=== PATIENT | female | born 1945 | race Caucasian/White ===

== ENCOUNTER 2019-11-10 12:38 | Emergency (ER) | payer MEDICARE, OTHER, SELFPAY ==
[2019-11-10 13:13] VITALS: BP 118/67; PULSE 88; RESP 20; TEMP 36.4; O2SAT 94; BMI 21.4
--- NOTE | 2019-11-10 15:27 | ECG_ITS ---
Measurements Intervals [place] Rate: 81 P: 56 CA: 122 QRS: 34 QRSD: 100 T: 65 QT: 427 QTc: 497 SINUS RHYTHM POSSIBLE LEFT ATRIAL ENLARGEMENT LEFT VENTRICULAR HYPERTROPHY AND ST-T CHANGE POSSIBLE SEPTAL MYOCARDIAL INFARCTION , OF INDETERMINATE AGE Compared to ECG 09/10/2019 04:17:51 Left ventricular hypertrophy now present ST (T wave) deviation now present Myocardial infarct finding now present T-wave abnormality no longer present Electronically Signed On 11-10-2019 17:08:23 BREAKDOWN MAN by Kristal Del Castillo M.D. [email or web address]
--- NOTE | 2019-11-10 15:27 | XR_ITS ---
WS: [id number] Portable AP upright chest, 11/10/2019 Clinical Data: chest pain Comparison: E a and lateral chest, 07/07/2019. Findings: No nodules, masses or effusions are seen. The heart is normal. The pulmonary vascularity is not increased. No pneumonia or pneumothorax is seen. Minimal atelectatic change in the left lower lo be is seen. The aortic arch and descending aorta show calcification and tortuosity. There is a stent extending into the brachiocephalic artery from the aortic arch. XR/XR chest 1V portable [id number] Impression: Atherosclerosis.
== END 2019-11-10 17:08 | disposition home or self-care (01) ==
PROVIDERS: Emergency Provider Emergency Medicine; Family Provider Internal Medicine; PCP Family Medicine
DX: Z53.21 Procedure and treatment not carried out due to patient leaving prior to being seen by health care provider (principal)
CPT/HCPCS: 71045; 93005; 99281

== ENCOUNTER 2019-11-12 16:40 | Emergency (ER) | payer MEDICARE, OTHER, SELFPAY ==
[2019-11-12 16:42] VITALS: BP 167/87; PULSE 85; RESP 18; TEMP 36.7; O2SAT 95; BMI 26.5
--- NOTE | 2019-11-12 16:42 | ED_ITS ---
Entered by Fely Flower, acting as scribe for Fidel Christianson DO HPI - Fall General: Chief Complaint: Fall Stated Complaint: FALL Time Seen by Provider: 11/12/19 16:41 Source: patient Mode of arrival: EMS Limitations: no limitations History of Present Illness: HPI Narrative: 74 yo Female presents to ED with complaint of fall. Pt states she hurts all over. Pt states that she fell coming out of her bathroom. Pt states that she had to drag herself to the livingroom to get herself up. Pt states that she hit both sides of her head and her right shoulder. Pt states that she fell flat on her back and her back hurts. Pt states that she wants to be sure that she doesn't have pneumonia because she gets it really easy. MD complaint: fall Onset (ago): day(s) (today) Fall from: standing Fall witnessed: no Place fall occurred: home Loss of consciousness: None Location of injury: head and back Location of injury - extremities: Right: shoulder Severity scale (1-10): 7 Associated symptoms-after fall: Reports difficulty walking Review of Systems General: Reports: 10 or more systems reviewed and unremarkable except in HPI and below Musc: Reports: back pain, extremity pain (right shoulder) and muscle weakness Neuro: Reports: difficulty walking PFSH ED PFSH: Statuses (acute, chronic, etc) shown below reflect problem list status as previously entered and may not be historically accurate Medical History (Updated 11/12/19 @ 19:20 by Fidel Christianson DO) Atrial fibrillation (Acute) CAD (coronary artery disease) (Acute) CHF (congestive heart failure) (Acute) COPD (chronic obstructive pulmonary disease) (Acute) CVA (cerebral vascular accident) (Acute) Diabetes (Acute) GERD (gastroesophageal reflux disease) (Acute) HTN (hypertension) (Acute) Hyperlipidemia (Acute) Lung cancer (Acute) Myocardial infarction (Acute) Pancreatitis (Acute) Peptic ulcer disease (Acute) Peripheral vascular disease (Acute) Pulmonary embolism (Acute) Ulcerative colitis (Acute) Valvular heart disease (Acute) Surgical History (Updated 11/12/19 @ 17:18 by Fely Flower) History of bladder suspension procedure (Acute) History of laparotomy (Acute) Hx of adenoidectomy (Acute) Hx of appendectomy (Acute) Hx of carotid angioplasty (Acute) Hx of cataract surgery (Acute) Hx of cholecystectomy (Acute) Hx of colonoscopy (Acute) Hx of endoscopy (Acute) Hx of hemorrhoidectomy (Acute) Hx of hysterectomy (Acute) Hx of tonsillectomy (Acute) Social History Smoking and tobacco status: former smoker Physical Exam Const: COMMON NORMALS: no apparent distress, average body habitus, oriented x3, no limitations, healthy appearing, alert and well nourished HENMT: COMMON NORMALS: normocephalic, head/scalp atraumatic, hearing grossly normal bilaterally, external ears normal, EAC's normal, TM's normal bilaterally, external nose normal, nasal mucous membranes and turbinates normal, moist oral mucous membranes, oropharynx normal, dentition normal and gingiva normal HEAD & SCALP: normocephalic and atraumatic NOSE: external nose normal and nasal mucous membranes and turbinates normal EXTERNAL EAR: Yes external ears normal EXTERNAL AUDITORY CANAL: EAC's normal TYMPANIC MEMBRANE: TM's normal bilaterally Eye: COMMON NORMALS: PERRL, EOMs intact bilaterally, conjunctivae normal, no scleral icterus, no papilledema, normal visual shepherd by confrontation and fundi normal bilaterally CONJUNCTIVA: Yes conjunctivae normal PUPIL: Yes PERRL DIRECT OPHTHALMOSCOPY: Yes no papilledema and Yes fundi normal bilaterally Neck/C-Spine: COMMON NORMALS: full ROM, no lymphadenopathy, supple, no meningeal signs, no JVD, thyroid normal and no carotid bruits THYROID: thyroid normal Chest: COMMONS NORMALS: inspection of chest normal and palpation of chest normal Resp: COMMON NORMALS: normal respiratory effort, no retractions, no use of accessory muscles, clear to auscultation bilaterally and percussion normal AUSCULTATION: clear to auscultation bilaterally PERCUSSION: percussion normal Cardio: COMMON NORMALS: no JVD, regular rate, regular rhythm, S1 normal heart sound, S2 normal heart sound, no gallops, no clicks, no murmurs, no rub and peripheral pulses 2+ throughout RATE: regular rate RHYTHM: regular rhythm HEART SOUNDS: S1 normal and S2 normal PERIPHERAL PULSES: pulses 2+ throughout GI: COMMON NORMALS: normal to inspection, nondistended, normoactive bowel sounds, soft to palpation, non-tender, no hepatosplenomegaly, no masses and no bruits PALPATION: Yes soft and Yes no hepatosplenomegaly : COMMON NORMALS: Yes no CVA tenderness and Yes external appearance normal BLADDER/KIDNEY EXAM: Yes no CVA tenderness Back/Pelvis: COMMON NORMALS: no CVA tenderness, thoracic and lumbar spine normal to inspection, no thoracic nor lumbar tenderness, thoraco-lumbar ROM normal and straight leg raise negative bilaterally Extremity: COMMON NORMALS: normal to inspection, full ROM, normal capillary refill, no joint enlargement, no clubbing, cyanosis or edema, no calf tenderness and no pedal edema Neuro: COMMON NORMALS: oriented x3 SENSORIUM/ORIENTATION: Yes alert MENINGEAL SIGNS: Yes no meningeal signs Skin: COMMON NORMALS: no rashes or lesions noted, no wounds, skin turgor normal, no jaundice, no petechiae and no mottling GENERAL SKIN EXAM: no rashes or lesions noted and turgor normal Course Vital Signs: Vital signs: Vital Signs Temperature 98.1 F 11/12/19 16:42 Pulse Rate 85 11/12/19 16:42 Respiratory Rate 18 11/12/19 18:07 Blood Pressure 167/87 11/12/19 16:42 Pulse Oximetry 95 11/12/19 18:07 MDM - Fall Lab Data: Labs: Lab Results 11/12/19 11/12/19 11/12/19 Range/Units 15:44 17:15 17:15 WBC 12.4 H (4.0-10.0) 10^3/ uL RBC 4.44 (4.1-5.3) 10^6/u L Hgb 13.4 (11.5-15.3) g/dL Hct 43.7 (37.0-47.0) % MCV 98.4 (81-99) fL MCH 30.2 (28.0-34.0) pg MCHC 30.7 (30.0-36.0) g/dL RDW 15.7 H (12.1-15.1) % Plt Count 232 (130-400) 10^3/c mm MPV 9.3 (7.4-10.4) fL Neut % (Auto) 87.4 % Lymph % (Auto) 8.2 % Garden % (Auto) 3.9 % Eos % (Auto) 0.0 % Baso % (Auto) 0.2 % Neut # (Auto) 10.8 H (1.8-7.7) 10^3/u L Lymph # (Auto) 1.0 (0.8-4.8) 10^3/u L Garden # (Auto) 0.5 (0.2-0.9) 10^3/u L Eos # (Auto) 0.0 (0.0-0.8) 10^3/u L Baso # (Auto) 0.0 (0.0-0.1) 10^3/u L Nucleated RBC % (a uto) 0 % Nucleated RBCs # 0.0 /100WBC Sodium 140 (136-145) mmol/L Potassium 3.5 (3.5-5.1) mmol/L Chloride 103 (98-107) mmol/L Carbon Dioxide 25 (22-29) mmol/L Anion Gap 15.5 (5-19) BUN 13 (8-23) mg/dL Creatinine 0.8 (0.5-0.9) mg/dL Glucose 84 (74-106) mg/dL Lactate (0.5-2.2) mmol/L Calcium 9.4 (8.8-10.2) mg/Dl Total Bilirubin 0.3 (0.15-1.2) mg/dL AST 10 (0-32) U/L ALT < 5 (0-33) U/L Alkaline Phosphata se 141 H (35-105) IU/L Total Protein 7.2 (6.6-8.7) g/dL Albumin 3.4 L (3.5-5.2) g/dL Globulin 3.8 (1.3-4.6) g/dL Urine Color Straw (Yellow) Urine Appearance Sl hazy (CLEAR) Urine pH 5 (5-7) Ur Specific Gravit y 1.010 (1.005-1.030) Urine Protein Neg (Negative) Urine Glucose (UA) Norm (Normal) Urine Ketones Negative (Negative) Urine Occult Blood Neg (Negative) Urine Nitrate Negative (Negative) Urine Bilirubin Neg (NEGATIVE) Urine Urobilinogen Norm (Negative) mg/dL Ur Leukocyte Mica ase Trace H (Negative) Urine RBC 0-4 H (0-2) /hpf Urine WBC 15-25 H (0-5) /hpf Ur Squamous Epith Cells 10-15 H (0-5) Ur Transition Epit h Cell 0-4 /hpf Urine Bacteria 2+ H (NONE) Hyaline Casts 5-10 H Urine Mucus Trace Influenza Type A A g (Negative) POC Influenza B Ag (Negative) 11/12/19 11/12/19 Range/Units 17:15 18:15 WBC (4.0-10.0) 10^3/ uL RBC (4.1-5.3) 10^6/u L Hgb (11.5-15.3) g/dL Hct (37.0-47.0) % MCV (81-99) fL MCH (28.0-34.0) pg MCHC (30.0-36.0) g/dL RDW (12.1-15.1) % Plt Count (130-400) 10^3/c mm MPV (7.4-10.4) fL Neut % (Auto) % Lymph % (Auto) % Garden % (Auto) % Eos % (Auto) % Baso % (Auto) % Neut # (Auto) (1.8-7.7) 10^3/u L Lymph # (Auto) (0.8-4.8) 10^3/u L Garden # (Auto) (0.2-0.9) 10^3/u L Eos # (Auto) (0.0-0.8) 10^3/u L Baso # (Auto) (0.0-0.1) 10^3/u L Nucleated RBC % (a uto) % Nucleated RBCs # /100WBC Sodium (136-145) mmol/L Potassium (3.5-5.1) mmol/L Chloride (98-107) mmol/L Carbon Dioxide (22-29) mmol/L Anion Gap (5-19) BUN (8-23) mg/dL Creatinine (0.5-0.9) mg/dL Glucose (74-106) mg/dL Lactate 0.7 (0.5-2.2) mmol/L Calcium (8.8-10.2) mg/Dl Total Bilirubin (0.15-1.2) mg/dL AST (0-32) U/L ALT (0-33) U/L Alkaline Phosphata se (35-105) IU/L Total Protein (6.6-8.7) g/dL Albumin (3.5-5.2) g/dL Globulin (1.3-4.6) g/dL Urine Color (Yellow) Urine Appearance (CLEAR) Urine pH (5-7) Ur Specific Gravit y (1.005-1.030) Urine Protein (Negative) Urine Glucose (UA) (Normal) Urine Ketones (Negative) Urine Occult Blood (Negative) Urine Nitrate (Negative) Urine Bilirubin (NEGATIVE) Urine Urobilinogen (Negative) mg/dL Ur Leukocyte Mica ase (Negative) Urine RBC (0-2) /hpf Urine WBC (0-5) /hpf Ur Squamous Epith Cells (0-5) Ur Transition Epit h Cell /hpf Urine Bacteria (NONE) Hyaline Casts Urine Mucus Influenza Type A A g Negative (Negative) POC Influenza B Ag Negative (Negative) Imaging Data^: CT Head: Radiologist's impression: [place] [address] CT Scan Report Signed Patient: Nola Quick [facility]#: [id number] : 1945cct:[id number] Age/Sex: 74 / FADM Date: 11/12/19 Loc: ER Attending Dr: Ordering Physician: Fidel Christianson DO Date of Service: 11/12/19 Procedure(s): CT head wo con* [id number] Accession Number(s): [id number] cc: Fidel Christianson DO~ PROCEDURE INFORMATION: Exam: CT Head Without Contrast Exam date and time: 11/12/2019 4:58 PM Age: 74 years old Clinical indication: Injury or trauma; Fall; Initial encounter; Blunt trauma (contusions or hematomas); Consciousness not specified TECHNIQUE: Imaging protocol: Computed tomography of the head without contrast. Total DLP: 803.76 mGy-cm Radiation optimization: All CT scans at this facility use at least one of these dose optimization techniques: automated exposure control; mA and/or kV adjustment per patient size (includes targeted exams where dose is matched to clinical indication); or iterative reconstruction. COMPARISON: [place] IV contrast* [id number] 09/10/2019 3:23 AM FINDINGS: Brain: There is encephalomalacia in the right parieto-occipital lobe.Mild volume loss and white matter disease are identified. There is no acute infarct or edema. No hemorrhage. Ventricles: Normal. No ventriculomegaly. Bones/joints: Unremarkable. No acute fracture. Sinuses: Visualized sinuses are unremarkable. No fluid levels. Mastoid air cells: Visualized mastoid air cells are well aerated. Soft tissues: Unremarkable. Vasculature: There is a surgical clip near the cavernous sinus which results in streak artifact. This is unchanged. CT/CT head wo con* [id number] IMPRESSION: No acute fracture or intracranial hemorrhage. Radiation Dose CTDIVOL = (mGy): DLP = 803.76 (mGy-cm) Dictated By: Loi Velasco MD 11/12/19 174 Signed By: Loi Velasco MD 11/12/19 174 CXR: Radiologist's impression: [address] [address] XRay Report Signed Patient: Nola Quick SMR#: [id number] : 1945cct:[id number] Age/Sex: 74 / FADM Date: 11/12/19 Loc: ER Attending Dr: Ordering Physician: Fidel Christianson DO Date of Service: 11/12/19 Procedure(s): XR chest 1V 43401 Accession Number(s): [id number] cc: Fidel Christianson DO~ PROCEDURE INFORMATION: Exam: XR Chest, 1 View Exam date and time: 11/12/2019 4:58 PM Age: 74 years old Clinical indication: Injury or trauma; Fall; Initial encounter; Blunt trauma (contusions or hematomas); Prior surgery; Additional info: Pneumonia TECHNIQUE: Imaging protocol: XR of the chest Views: 1 view. COMPARISON: CR XR chest 1V portable [id number] 11/10/2019 3:23 PM FINDINGS: Lungs: Unremarkable. No consolidation. Pleural space: Unremarkable. No pleural effusion. No pneumothorax. Heart/Mediastinum: Cardiomegaly is identified. Bones/joints: Unremarkable. Soft tissues: There is a stent in what is likely a right brachiocephalic vessel. XR/XR chest 1V [id number] IMPRESSION: There are no acute concerning abnormalities. Dictated By: Loi Velasco MD 11/12/19 181 Signed By: Loi Velasco MD 11/12/19 1813 Lumbar Spine Xray: Radiologist's impression: [address] [place] [address] XRay Report Signed Patient: Nola Quick [facility]#: [id number] : 3Acct:[id number] Age/Sex: 74 / FADM Date: 11/12/19 Loc: ER Attending Dr: Ordering Physician: Fidel Christianson DO Date of Service: 11/12/19 Procedure(s): XR lumbar spine 2-3V* 01294 Accession Number(s): [id number] cc: Fidel Christianson DO~ PROCEDURE INFORMATION: Exam: XR Lumbosacral Spine, 2 or 3 Views Exam date and time: 11/12/2019 4:58 PM Age: 74 years old Clinical indication: Pain and injury or trauma; Fall; Initial encounter; Blunt trauma (contusions or hematomas); Low back pain; Injury date: TECHNIQUE: Imaging protocol: XR of the lumbosacral spine, 2 or 3 views. COMPARISON: CR Lumbar Spine 2-3 views* [id number] 10/09/2014 11:02 AM FINDINGS: Vertebrae: There is deformity of the L4 vertebral body which is likely old. No acute fracture. There is osteopenia. Vasculature: There is a stent in the abdominal aorta and right iliac artery. Soft tissues: Normal. XR/XR lumbar spine 2-3V* 01314 IMPRESSION: No acute fracture. There is deformity of the L4 vertebral body which appears old.If there is desire for further evaluation, a CT scan could be performed. Dictated By: Loi Velasco MD 11/12/19 1800 Signed By: Loi Velasco MD 11/12/19 1801 Pelvis Xray: Radiologist's impression: [address] [place] [address] XRay Report Signed Patient: Noal Quick [facility]#: [id number] : 3Acct:[id number] Age/Sex: 74 / FADM Date: 11/12/19 Loc: ER Attending Dr: Ordering Physician: Fidel Christianson DO Date of Service: 11/12/19 Procedure(s): XR pelvis 1-2V* 06697 Accession Number(s): [id number] cc: Fidel Christianson DO~ PROCEDURE INFORMATION: Exam: XR Pelvis Exam date and time: 11/12/2019 4:58 PM Age: 74 years old Clinical indication: Pain and injury or trauma; Fall; Initial encounter; Blunt trauma (contusions or hematomas); Bilateral; Pelvic region; Pelvic pain; Injury date: TECHNIQUE: Imaging protocol: XR pelvis. Views: 1 or 2 view. COMPARISON: CR Hips Bilat 3-4v wwo Pelv 46783 08/18/2016 11:55 AM FINDINGS: Bones/joints: There is osteopenia.There is no evidence for acute fracture or malalignment. Soft tissues: Unremarkable. XR/XR pelvis 1-2V* 16550 IMPRESSION: There is no evidence for acute fracture or malalignment. If there is desire for further evaluation, a CT scan could be performed. Dictated By: Loi Velasco MD 11/12/191757 Signed By: Loi Velasco MD 11/12/191758 Shoulder Xray: Radiologist's impression: [place] [address] XRay Report Signed Patient: Nola Quick [facility]#: [id number] : 3Acct:[id number] Age/Sex: 74 / FADM Date: 11/12/19 Loc: ER Attending Dr: Ordering Physician: Fidel Christianson DO Date of Service: 11/12/19 Procedure(s): XR shoulder RT min 2V* 48624 Accession Number(s): [id number] cc: Fidel Christianson DO~ PROCEDURE INFORMATION: Exam: XR Right Shoulder Exam date and time: 11/12/2019 4:58 PM Age: 74 years old Clinical indication: Pain and injury or trauma; Fall; Initial encounter; Blunt trauma (contusions or hematomas; Shoulder; Right; Injury date: TECHNIQUE: Imaging protocol: XR Right shoulder. Views: 2 or more views. COMPARISON: No relevant prior studies available. FINDINGS: Bones/joints: There is osteopenia.There is no evidence for acute fracture or malalignment. Soft tissues: Normal. XR/XR shoulder RT min 2V* [id number] IMPRESSION: There is no evidence for acute fracture or malalignment. If there is desire for further evaluation, a CT scan could be performed. Dictated By: Loi Velasco MD 11/12/191806 Signed By: Loi Velasco MD 11/12/191807 Discharge Plan Discharge Patient Disposition: Home, Self-Care Clinical Impression: Fall Qualifiers: Encounter type: initial encounter Qualified Code(s): W19.XXXA - Unspecified fall, initial encounter Contusion Qualifiers: Encounter type: initial encounter Contusion area: lower back Qualified Code(s): S30.0XXA - Contusion of lower back and pelvis, initial encounter UTI (urinary tract infection) Qualifiers: Urinary tract infection type: acute cystitis Hematuria presence: with hematuria Qualified Code(s): N30.01 - Acute cystitis with hematuria Condition: Stable Prescriptions: New nitrofurantoin macrocrystal 100 mg capsule 100 mg PO BID 7 Days Qty: 14 RF: 0 Discharge Orders: Discharge Order (Routine); Ordered 11/12/19 Ordered By: Fidel Christianson Referrals: Nata Bangura MD [Primary Care Provider] - Dyllan Mann DO [Family Provider] - Discharge Diet: Usual diet Discharge Activity: Resume usual activity Coding Level of Care Code ED 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
--- NOTE | 2019-11-12 16:47 | XRR_ITS ---
PROCEDURE INFORMATION: Exam: XR Right Shoulder Exam date and time: 11/12/2019 4:58 PM Age: 74 years old Clinical indication: Pain and injury or trauma; Fall; Initial encounter; Blunt trauma (contusions or hematomas; Shoulder; Right; Injury date: TECHNIQUE: Imaging protocol: XR Right shoulder. Views: 2 or more views. COMPARISON: No relevant prior studies available. FINDINGS: Bones/joints: There is osteopenia.There is no evidence for acute fracture or malalignment. Soft tissues: Normal. XR/XR shoulder RT min 2V* [id number] IMPRESSION: There is no evidence for acute fracture or malalignment. If there is desire for further evaluation, a CT scan could be performed.
--- NOTE | 2019-11-12 16:47 | CTR_ITS ---
PROCEDURE INFORMATION: Exam: CT Head Without Contrast Exam date and time: 11/12/2019 4:58 PM Age: 74 years old Clinical indication: Injury or trauma; Fall; Initial encounter; Blunt trauma (contusions or hematomas); Consciousness not specified TECHNIQUE: Imaging protocol: Computed tomography of the head without contrast. Total DLP: 803.76 mGy-cm Radiation optimization: All CT scans at this facility use at least one of these dose optimization techniques: automated exposure control; mA and/or kV adjustment per patient size (includes targeted exams where dose is matched to clinical indication); or iterative reconstruction. COMPARISON: CT Head wo IV contrast* [id number] 09/10/2019 3:23 AM FINDINGS: Brain: There is encephalomalacia in the right parieto-occipital lobe.Mild volume loss and white matter disease are identified. There is no acute infarct or edema. No hemorrhage. Ventricles: Normal. No ventriculomegaly. Bones/joints: Unremarkable. No acute fracture. Sinuses: Visualized sinuses are unremarkable. No fluid levels. Mastoid air cells: Visualized mastoid air cells are well aerated. Soft tissues: Unremarkable. Vasculature: There is a surgical clip near the cavernous sinus which results in streak artifact. This is unchanged. CT/CT head wo con* [id number] IMPRESSION: No acute fracture or intracranial hemorrhage. Radiation Dose CTDIVOL = (mGy): DLP = 803.76 (mGy-cm)
--- NOTE | 2019-11-12 16:47 | XRR_ITS ---
PROCEDURE INFORMATION: Exam: XR Pelvis Exam date and time: 11/12/2019 4:58 PM Age: 74 years old Clinical indication: Pain and injury or trauma; Fall; Initial encounter; Blunt trauma (contusions or hematomas); Bilateral; Pelvic region; Pelvic pain; Injury date: TECHNIQUE: Imaging protocol: XR pelvis. Views: 1 or 2 view. COMPARISON: CR Hips Bilat 3-4v wwo Pelv [id number] 08/18/2016 11:55 AM FINDINGS: Bones/joints: There is osteopenia.There is no evidence for acute fracture or malalignment. Soft tissues: Unremarkable. XR/XR pelvis 1-2V* 31099 IMPRESSION: There is no evidence for acute fracture or malalignment. If there is desire for further evaluation, a CT scan could be performed.
--- NOTE | 2019-11-12 16:47 | XRR_ITS ---
PROCEDURE INFORMATION: Exam: XR Lumbosacral Spine, 2 or 3 Views Exam date and time: 11/12/2019 4:58 PM Age: 74 years old Clinical indication: Pain and injury or trauma; Fall; Initial encounter; Blunt trauma (contusions or hematomas); Low back pain; Injury date: TECHNIQUE: Imaging protocol: XR of the lumbosacral spine, 2 or 3 views. COMPARISON: CR Lumbar Spine 2-3 views* [id number] 10/09/2014 11:02 AM FINDINGS: Vertebrae: There is deformity of the L4 vertebral body which is likely old. No acute fracture. There is osteopenia. Vasculature: There is a stent in the abdominal aorta and right iliac artery. Soft tissues: Normal. XR/XR lumbar spine 2-3V* 17506 IMPRESSION: No acute fracture. There is deformity of the L4 vertebral body which appears old.If there is desire for further evaluation, a CT scan could be performed.
--- NOTE | 2019-11-12 16:47 | XRR_ITS ---
PROCEDURE INFORMATION: Exam: XR Chest, 1 View Exam date and time: 11/12/2019 4:58 PM Age: 74 years old Clinical indication: Injury or trauma; Fall; Initial encounter; Blunt trauma (contusions or hematomas); Prior surgery; Additional info: Pneumonia TECHNIQUE: Imaging protocol: XR of the chest Views: 1 view. COMPARISON: CR XR chest 1V portable [id number] 11/10/2019 3:23 PM FINDINGS: Lungs: Unremarkable. No consolidation. Pleural space: Unremarkable. No pleural effusion. No pneumothorax. Heart/Mediastinum: Cardiomegaly is identified. Bones/joints: Unremarkable. Soft tissues: There is a stent in what is likely a right brachiocephalic vessel. XR/XR chest 1V 55469 IMPRESSION: There are no acute concerning abnormalities.
--- NOTE | 2019-11-12 16:49 | ECG_ITS ---
Measurements Intervals [place] Rate: 84 P: 70 IN: 134 QRS: 46 QRSD: 92 T: 73 QT: 414 QTc: 492 SINUS RHYTHM LEFT VENTRICULAR HYPERTROPHY AND ST-T CHANGE [VOLTAGE CRITERIA PLUS ST/T ABNORMALITY] POSSIBLE SEPTAL MYOCARDIAL INFARCTION , OF INDETERMINATE AGE Compared to ECG 11/10/2019 15:56:49 No significant changes Electronically Signed On 11-13-2019 11:15:43 WHEEL FITTER by Kristal Del Castillo M.D. [email or web address]
[2019-11-12 17:33] LABS: Basophils % 0.2 %; Hematocrit 43.7 % (37.0-47.0); Hemoglobin 13.4 g/dL (11.5-15.3); Lymphocytes % 8.2 %; Mean Corpuscular HGB Conc 30.7 g/dL (30.0-36.0); Mean Corpuscular Hemoglobin 30.2 pg (28.0-34.0); Mean Corpuscular Volume 98.4 fL (81-99); Mean Platelet Volume 9.3 fL (7.4-10.4); Monocytes # 0.5 10^3/uL (0.2-0.9); Monocytes % 3.9 %; Neutrophils # 10.8 10^3/uL (1.8-7.7); Neutrophils % 87.4 %; Nucleated Red Blood Cells % 0 %; Platelet Count 232 10^3/cmm (130-400); Red Blood Count 4.44 10^6/uL (4.1-5.3); Red Cell Distribution Width 15.7 % (12.1-15.1); White Blood Count 12.4 10^3/uL (4.0-10.0)
[2019-11-12] MEDS: sodium chloride 0.9% 1,000 ML 999 ML IV (17:39)
[2019-11-12 17:46] LABS: Lactate (Lactic Acid level) 0.7 mmol/L (0.5-2.2)
[2019-11-12 17:50] LABS: Alanine Aminotransferase < 5 U/L (0-33); Albumin Level 3.4 g/dL (3.5-5.2); Alkaline Phosphatase 141 IU/L (35-105); Anion Gap 15.5 (5-19); Aspartate Amino Transferase 10 U/L (0-32); Blood Urea Nitrogen 13 mg/dL (8-23); Calcium 9.4 mg/Dl (8.8-10.2); Carbon Dioxide 25 mmol/L (22-29); Chloride 103 mmol/L (98-107); Globulin 3.8 g/dL (1.3-4.6); Glucose 84 mg/dL (74-106); Potassium 3.5 mmol/L (3.5-5.1); Sodium 140 mmol/L (136-145); Total Bilirubin 0.3 mg/dL (0.15-1.2); Total Protein 7.2 g/dL (6.6-8.7)
[2019-11-12 18:07] VITALS: RESP 18; O2SAT 95
[2019-11-12] MEDS: morphine 4 mg/mL SDV 1 mL 2 MG IVP (18:07)
[2019-11-12] MEDS: ondansetron 2 mg/ML SDV 2 mL 4 MG IVP (18:10)
[2019-11-12 19:07] LABS: Bilirubin Urine Neg (NEGATIVE); Blood Urine Neg (Negative); Glucose Urine UA Norm (Normal); Ketones Urine Negative (Negative); Leukocyte Esterase Urine Trace (Negative); Nitrate Urine Negative (Negative); Protein Urine Neg (Negative); Urine Appearance SL Hazy (CLEAR); Urine Color Straw (Yellow); Urobilinogen Urine Norm (Negative); pH Urine 5 (5-7)
[2019-11-12 19:09] LABS: Bacteria Urine 2+; Mucus Urine TRACE; RBC Urine 0-4 /hpf (0-2); Transitional Epi Cells Urine 0-4 /hpf; WBC Urine 15-25 /hpf (0-5)
[2019-11-12 19:11] LABS: Add Urine Culture? Yes
[2019-11-12 19:12] LABS: Influenza A by IFA Negative (Negative)
[2019-11-12 19:13] LABS: Influenza B by IFA Negative (Negative)
[2019-11-12 20:29] VITALS: BP 142/67; PULSE 77; RESP 18; O2SAT 98
== END 2019-11-12 20:30 | disposition home or self-care (01) ==
PROVIDERS: Emergency Provider Family Medicine; Family Provider Internal Medicine; PCP Family Medicine
DX: S30.0XXA Contusion of lower back and pelvis, initial encounter (principal); N30.01 Acute cystitis with hematuria; W19.XXXA Unspecified fall, initial encounter; Y92.002 Bathroom of unspecified non-institutional (private) residence as the place of occurrence of the external cause; I48.91 Unspecified atrial fibrillation; I25.10 Atherosclerotic heart disease of native coronary artery without angina pectoris; I11.0 Hypertensive heart disease with heart failure; I50.9 Heart failure, unspecified; J44.9 Chronic obstructive pulmonary disease, unspecified; Z86.73 Personal history of transient ischemic attack (TIA), and cerebral infarction without residual deficits; E11.9 Type 2 diabetes mellitus without complications; E78.5 Hyperlipidemia, unspecified; Z85.118 Personal history of other malignant neoplasm of bronchus and lung; I25.2 Old myocardial infarction; I73.9 Peripheral vascular disease, unspecified; Z86.711 Personal history of pulmonary embolism; Z87.891 Personal history of nicotine dependence
CPT/HCPCS: 36415; 70450; 71045; 72100; 72170; 73030; 80053; 81001; 83605; 85025; 87077; 87086; 87186; 87804; 93005; 96360; 96372; 96374; 99282; J0696; J2001; J2270; J2405; J7030

== ENCOUNTER 2020-03-10 23:04 | Emergency (ER) | payer MEDICARE, OTHER, SELFPAY ==
[2020-03-10 23:33] VITALS: BP 172/90; PULSE 68; RESP 20; TEMP 36.6; O2SAT 86; BMI 25.6
--- NOTE | 2020-03-10 23:37 | XRR_ITS ---
PROCEDURE INFORMATION: Exam: XR Right Hand Exam date and time: 03/10/2020 11:38 PM Age: 74 years old Clinical indication: Injury or trauma; Initial encounter; Blunt trauma (contusions or hematomas; Right; Patient HX: R hand/5th finger pain swelling and bruising after fall TECHNIQUE: Imaging protocol: XR Right hand. Views: 3 or more views. COMPARISON: No relevant prior studies available. FINDINGS: Bones/joints: There is acute intra-articular fracture of the base of the proximal phalanx of the 5th digit of the right hand. There is cortical irregularity of the base of the 4th metacarpal of the right hand possibly representing a nondisplaced fracture. Soft tissues: Soft tissue swelling overlies the 5th metacarpophalangeal joint. XR/XR hand RT min 3V* [id number] IMPRESSION: 1. Acute intra-articular fracture of the base of the proximal phalanx of the 5th digit of the right hand. 2. Mild cortical irregularity at the base of the 4th metacarpal of the right hand possibly representing a fracture site.
--- NOTE | 2020-03-11 00:11 | CTR_ITS ---
PROCEDURE INFORMATION: Exam: CT Cervical Spine Without Contrast Exam date and time: 03/11/2020 12:16 AM Age: 74 years old Clinical indication: Injury or trauma; Initial encounter; Blunt trauma; Prior surgery; Surgery date: 6+ months; Surgery type: R carotid; Patient HX: Fall this pm TECHNIQUE: Imaging protocol: Computed tomography images of the cervical spine without contrast. Radiation optimization: All CT scans at this facility use at least one of these dose optimization techniques: automated exposure control; mA and/or kV adjustment per patient size (includes targeted exams where dose is matched to clinical indication); or iterative reconstruction. Total DLP: 532.35 mGy-cm COMPARISON: CT Cervical Spine wo* [id number] 09/10/2019 3:30 AM FINDINGS: Vertebrae: No acute fracture. Normal alignment. Discs/Spinal canal/Neural foramina: There is diffuse loss of disc height seen within the cervical spine compatible with degenerative disc disease. Soft tissues: Unremarkable. Sinuses: Mucosal thickening and fluid is seen within the right sphenoidal sinus. Thyroid: There is a large hypoattenuation cystic mass seen within the right thyroid lobe that measures approximately 2.3 x 2.5 x 2.5 cm likely representing a colloid cyst. There are 2 tiny hypodensities seen within the left thyroid lobe measuring approximately 4 mm in diameter possibly representing a tiny colloid cysts as well. These appear stable compared with 09/10/2019. Lungs: Lung apices are normal. Vasculature: There is a stent present within the proximal right common carotid artery. Other findings: There is a 2.7 mm anterior spondylolisthesis of C3 on C4 likely secondary to degenerative disc disease and laxity of the longitudinal ligaments. This appears stable compared with 09/10/2019. CT/CT cervical spin wo con* [id number] IMPRESSION: 1. There are no acute osseous findings. 2. Stable hypoattenuation cystic lesions within the thyroid bilaterally, the largest seen on the right measuring up to 2.5 cm. No follow-up is recommended. COMMENTS: Consistent with the [employer]'s Incidental Findings Committee white paper (J Am Sergey Radiol 2015): In patients aged 35 years and older with an incidental thyroid nodule equal to or greater than 1.[address], MRI or extrathyroidal US, further evaluation with dedicated thyroid US is recommended for patients with normal life expectancy and without comorbidities. For smaller nodules without suspicious features, no further evaluation or follow up is recommended. Radiation Dose CTDIVOL = (mGy): DLP = 532.35 (mGy-cm)
--- NOTE | 2020-03-11 00:11 | CTR_ITS ---
PROCEDURE INFORMATION: Exam: CT Head Without Contrast Exam date and time: 03/11/2020 12:16 AM Age: 74 years old Clinical indication: Injury or trauma; Initial encounter; Blunt trauma (contusions or hematomas); Consciousness not specified; Prior surgery; Surgery date: 6+ months; Surgery type: Embolization; Patient HX: Fall this pm TECHNIQUE: Imaging protocol: Computed tomography of the head without contrast. Radiation optimization: All CT scans at this facility use at least one of these dose optimization techniques: automated exposure control; mA and/or kV adjustment per patient size (includes targeted exams where dose is matched to clinical indication); or iterative reconstruction.Total DLP: 774.9 mGy-cm COMPARISON: CT head wo con* [id number] 11/12/2019 5:21 PM FINDINGS: Brain: There is mild diffuse cerebral atrophy. Patchy areas of hypoattenuation seen in the deep white matter of the cerebral hemispheres bilaterally compatible with deep white matter microvascular disease. There is stable hypoattenuation and encephalomalacia is seen in the right parieto-occipital region. Ventricles: Normal. No ventriculomegaly. Bones/joints: Unremarkable. No acute fracture. Sinuses: Some mucosal thickening and fluid is seen within the right sphenoidal sinus. Mastoid air cells: Visualized mastoid air cells are well aerated. Soft tissues: Unremarkable. Vasculature: Surgical clips is seen in the anterior aspect of the right cavernous sinus appearing stable compared with 11/12/2019. CT/CT head wo con* [id number] IMPRESSION: There are no acute intracranial findings. Radiation Dose CTDIVOL = (mGy): DLP = 774.9 (mGy-cm)
--- NOTE | 2020-03-11 00:12 | XRR_ITS ---
PROCEDURE INFORMATION: Exam: XR Chest, 1 View Exam date and time: 03/11/2020 1:00 AM Age: 74 years old Clinical indication: Prior surgery; Surgery date: 6+ months; Patient HX: Fall this pm HX of lung CA w low o2 sats TECHNIQUE: Imaging protocol: XR of the chest Views: 1 view. COMPARISON: CR XR chest 1V [id number] 11/12/2019 5:27 PM FINDINGS: Lungs: There is a background of the chronic parenchymal scarring. There are increased linear opacities present in the left hemithorax, bronchial wall thickening and some increased interstitial markings present bilaterally, findings that suggest pulmonary edema. Pleural space: Unremarkable. No pleural effusion. No pneumothorax. Heart/Mediastinum: The cardiac silhouette is at the upper limits of normal. Vasculature: Calcifications are seen within the thoracic aorta. Bones/joints: Unremarkable. Soft tissues: There is a stent present within the brachiocephalic and proximal right common carotid artery. XR/XR chest 1V portable [id number] IMPRESSION: Probable pulmonary edema superimposed over background of chronic parenchymal scarring.
--- NOTE | 2020-03-11 00:13 | ECG_ITS ---
Measurements Intervals [place] Rate: 75 P: 70 ID: [id number] QRS: -3 QRSD: 105 T: 59 QT: 434 QTc: 488 SINUS RHYTHM POSSIBLE RIGHT ATRIAL ENLARGEMENT [0.25mV P WAVE] POSSIBLE LEFT ATRIAL ENLARGEMENT [-0.1mV P WAVE IN V1/V2] LEFT VENTRICULAR HYPERTROPHY AND ST-T CHANGE [VOLTAGE CRITERIA PLUS ST/T ABN ABNORMALITY] INTERPRETATION BASED ON A DEFAULT AGE OF 40 YEARS Compared to ECG 11/12/2019 17:57:41 Myocardial infarct finding no longer present ST (T wave) deviation still present Electronically Signed On 03-11-2020 17:04:30 CDT by Toshia Gee M.D. [email or web address]
[2020-03-11 00:23] VITALS: O2SAT 95
[2020-03-11 00:23] LABS: Basophils % 0.2 %; Eosinophils % 0.2 %; Hematocrit 46.4 % (37.0-47.0); Hemoglobin 13.9 g/dL (11.5-15.3); Lymphocytes # 1.2 10^3/uL (0.8-4.8); Lymphocytes % 21.3 %; Mean Corpuscular Hemoglobin 28.9 pg (28.0-34.0); Mean Corpuscular Volume 96.5 fL (81-99); Mean Platelet Volume 12.3 fL (7.4-10.4); Monocytes # 0.5 10^3/uL (0.2-0.9); Neutrophils # 3.9 10^3/uL (1.8-7.7); Neutrophils % 68.9 %; Nucleated Red Blood Cells % 0 %; Platelet Count 168 10^3/cmm (130-400); Red Blood Count 4.81 10^6/uL (4.1-5.3); Red Cell Distribution Width 14.6 % (12.1-15.1); White Blood Count 5.7 10^3/uL (4.0-10.0)
[2020-03-11] MEDS: sodium chloride 0.9% 500 ML IV (00:30)
[2020-03-11 00:58] LABS: Alanine Aminotransferase 6 U/L (0-33); Albumin Level 3.8 g/dL (3.5-5.2); Alkaline Phosphatase 113 IU/L (35-105); Anion Gap 15.2 (5-19); Aspartate Amino Transferase 14 U/L (0-32); Blood Urea Nitrogen 27 mg/dL (8-23); Calcium 9.2 mg/dL (8.5-10.5); Carbon Dioxide 30 mmol/L (22-29); Chloride 100 mmol/L (98-107); Globulin 3.5 g/dL (1.3-4.6); Glucose 101 mg/dL (65-115); INR 1.13 (0.8-1.2); Magnesium 2.2 mg/dL (1.7-2.3); Osmolality Calculated 289 mOsm/kg (285-295); Potassium 4.2 mmol/L (3.5-5.1); Sodium 141 mmol/L (136-145); Total Bilirubin 0.3 mg/dL (0.15-1.2); Total Protein 7.3 g/dL (6.6-8.7)
[2020-03-11 00:59] LABS: Troponin(5th) Baseline 23 ng/mL (0-10)
--- NOTE | 2020-03-11 01:18 | ED_ITS ---
HPI - Fall General: Chief Complaint: Fall Stated Complaint: fall/right hand pain Time Seen by Provider: 03/10/20 23:53 History of Present Illness: HPI Narrative: 74-year-old female, on hospice, presents with a history of 5 falls over the last couple of days. She has multiple skin tears. A fall this evening injured her right hand. She does not remember how she fell this evening. She says that her legs have not done what I want them to do for the past few days. She has been generally weak. She has been more disoriented. She denies fever, significant cough. She does states she has been a bit short of breath. Associated symptoms-after fall: Reports confusion and neck pain; Denies abdominal pain, chest pain, headache(s), hematuria or vertigo Review of Systems Const: Denies: fever or chills Eyes: Denies: change in vision ENMT: Denies: painful swallowing or facial/sinus pain Card: Denies: chest pain, palpitations, irregular heart rhythm or edema Resp: Reports: shortness of breath; Denies: productive cough, non-productive cough or wheezing GI: Denies: abdominal pain, nausea or vomiting : Denies: painful urination or blood in urine Musc: Reports: neck pain; Denies: back pain, redness or joint warmth Skin/Breast: Denies: rash, itching or redness Neuro: Reports: confusion; Denies: headache, dizziness or vertigo Psych: Denies: anxiety PFS ED PFSH: Medical History Atrial fibrillation CAD (coronary artery disease) CHF (congestive heart failure) COPD (chronic obstructive pulmonary disease) CVA (cerebral vascular accident) Diabetes Gastroparesis GERD (gastroesophageal reflux disease) HTN (hypertension) Hyperlipidemia Lung cancer Non-small cell adenocarcinoma of lung, multifocal Mesenteric ischemia Celiac artery stenting Myocardial infarction Pancreatitis Peptic ulcer disease Peripheral vascular disease Pulmonary embolism Ulcerative colitis Valvular heart disease Surgical History History of bladder suspension procedure History of laparotomy Hx of adenoidectomy Hx of appendectomy Hx of carotid angioplasty Hx of cataract surgery Hx of cholecystectomy Hx of colonoscopy Hx of endoscopy Hx of hemorrhoidectomy Hx of hysterectomy Hx of tonsillectomy Family History Denies family history of Diabetes Dementia Chronic kidney disease (CKD) Social History Smoking and tobacco status: current every day smoker Alcohol intake: never Substance/Drug Use: never Household members: family Housing: House Physical Exam Const: GENERAL APPEARANCE: well developed ORIENTATION/CONSCIOUSNESS: Yes oriented to person and Yes oriented to place; not oriented to time HENMT: COMMON NORMALS: normocephalic and external nose normal HEAD & SCALP: normocephalic FACE & SINUS: normal facial exam NOSE: external nose normal and no nasal discharge MOUTH: tongue normal Eye: PUPIL: Yes anisocoria right pupil size greater than left Neck/C-Spine: GENERAL: No tracheal deviation CERVICAL SPINE: Yes normal cervical lordosis and No cervical spine tenderness Chest: COMMONS NORMALS: inspection of chest normal CHEST: No tenderness Resp: COMMON NORMALS: clear to auscultation bilaterally EFFORT & INSPECTION: No tachypneic, No respiratory distress, No retractions, No uses accessory muscles and No tracheal deviation AUSCULTATION: clear to auscultation bilaterally, no rhonchi, no wheezes and lung sounds not diminished Cardio: COMMON NORMALS: regular rate and regular rhythm RATE: regular rate RHYTHM: regular rhythm HEART SOUNDS: no murmurs PERIPHERAL PULSES: radial pulses present GI: INSPECTION: No abdominal distension AUSCULTATION: No hyperactive bowel sounds and No hypoactive bowel sounds PALPATION: No guarding and No rigid PERCUSSION: no dullness to percussion and no tympanic to percussion Extremity: OTHER: Right hand ecchymosis, swelling, and mild deformity. She has tenderness to the right fifth digit near the MCP. There is some fourth digit tenderness as well. Neuro: SENSORIUM/ORIENTATION: Yes oriented to person, Yes oriented to place and No oriented to time Psych: COMMON NORMALS: mental status grossly normal Skin: COMMON NORMALS: no rashes or lesions noted GENERAL SKIN EXAM: no rashes or lesions noted Course Vital Signs: Vital signs: Vital Signs Temperature 97.8 F 03/10/20 23:33 Pulse Rate 82 03/11/20 04:05 Respiratory Rate 18 03/11/20 04:05 Blood Pressure 132/72 03/11/20 04:05 Pulse Oximetry 92 03/11/20 04:05 MDM - Fall MDM Narrative: Medical decision making narrative: 74-year-old female hospice patient. She either fell or had a syncopal episode at home. She has had multiple falls in the past couple of days, numbering at least 5. She has skin tears. Her head CT is negative. Her C-spine CT is negative. Chest x-ray reveals pulmonary edema. She has a right fifth digit proximal phalanx fracture. She is placed in an ulnar gutter splint for this. Counseled her on her diagnosis, the likely reason for her fall/syncope, as she was significantly hypoxic when she got here. She is much better on oxygen. She is more alert now as well. Mother history of CHF, aortic stenosis, etc., we thought it best that she stay, cautiously diurese her. The hospitalist interviewed her and agrees. She is decided that she wants to go home instead. She will sign an AMA form. Lab Data: Labs: Lab Results 03/10/20 03/11/20 03/11/20 Range/Units 23:50 00:40 00:40 WBC 5.7 (4.0-10.0) 10^3/ uL RBC 4.81 (4.1-5.3) 10^6/u L Hgb 13.9 (11.5-15.3) g/dL Hct 46.4 (37.0-47.0) % MCV 96.5 (81-99) fL MCH 28.9 (28.0-34.0) pg MCHC 30.0 (30.0-36.0) g/dL RDW 14.6 (12.1-15.1) % Plt Count 168 (130-400) 10^3/c mm MPV 12.3 H (7.4-10.4) fL Neut % (Auto) 68.9 % Lymph % (Auto) 21.3 % Finney % (Auto) 9.0 % Eos % (Auto) 0.2 % Baso % (Auto) 0.2 % Neut # (Auto) 3.9 (1.8-7.7) 10^3/u L Lymph # (Auto) 1.2 (0.8-4.8) 10^3/u L [place] # (Auto) 0.5 (0.2-0.9) 10^3/u L Eos # (Auto) 0.0 (0.0-0.8) 10^3/u L Baso # (Auto) 0.0 (0.0-0.1) 10^3/u L Nucleated RBC % (a uto) 0 % Nucleated RBCs # 0.0 /100WBC PT 14.60 H (10.5-13.3) SECO NDS INR 1.13 (0.8-1.2) Sodium 141 (136-145) mmol/L Potassium 4.2 (3.5-5.1) mmol/L Chloride 100 (98-107) mmol/L Carbon Dioxide 30 H (22-29) mmol/L Anion Gap 15.2 (5-19) BUN 27 H (8-23) mg/dL Creatinine 1.3 H (0.5-0.9) mg/dL Glucose 101 (65-115) mg/dL Calculated Osmolal ity 289 (285-295) mOsm/k g Calcium 9.2 (8.5-10.5) mg/dL Magnesium 2.2 (1.7-2.3) mg/dL Total Bilirubin 0.3 (0.15-1.2) mg/dL AST 14 (0-32) U/L ALT 6 (0-33) U/L Alkaline Phosphata se 113 H (35-105) IU/L Troponin T Baselin e (0-10) ng/mL Troponin T 120 Min [place] (0-10) ng/mL Delta Troponin T (0-10) ABS# Total Protein 7.3 (6.6-8.7) g/dL Albumin 3.8 (3.5-5.2) g/dL Globulin 3.5 (1.3-4.6) g/dL Urine Color (Yellow) Urine Appearance (CLEAR) Urine pH (5-7) Ur Specific Gravit y (1.005-1.030) Urine Protein (Negative) Urine Glucose (UA) (Normal) Urine Ketones (Negative) Urine Blood (Negative) Urine Nitrate (Negative) Urine Bilirubin (NEGATIVE) Urine Urobilinogen (Negative) mg/dL Ur Leukocyte Mica ase (Negative) Urine RBC (0-2) /hpf Urine WBC (0-5) /hpf Ur Squamous Epith Cells (0-5) Urine Bacteria (NONE) Hyaline Casts Urine Mucus 05/03/20 05/03/20 05/03/20 Range/Units 00:40 01:15 03:00 WBC (4.0-10.0) 10^3/ uL RBC (4.1-5.3) 10^6/u L Hgb (11.5-15.3) g/dL Hct (37.0-47.0) % MCV (81-99) fL MCH (28.0-34.0) pg MCHC (30.0-36.0) g/dL RDW (12.1-15.1) % Plt Count (130-400) 10^3/c mm MPV (7.4-10.4) fL Neut % (Auto) % Lymph % (Auto) % [place] % (Auto) % Eos % (Auto) % Baso % (Auto) % Neut # (Auto) (1.8-7.7) 10^3/u L Lymph # (Auto) (0.8-4.8) 10^3/u L [place] # (Auto) (0.2-0.9) 10^3/u L Eos # (Auto) (0.0-0.8) 10^3/u L Baso # (Auto) (0.0-0.1) 10^3/u L Nucleated RBC % (a uto) % Nucleated RBCs # /100WBC PT (10.5-13.3) SECO NDS INR (0.8-1.2) Sodium (136-145) mmol/L Potassium (3.5-5.1) mmol/L Chloride (98-107) mmol/L Carbon Dioxide (22-29) mmol/L Anion Gap (5-19) BUN (8-23) mg/dL Creatinine (0.5-0.9) mg/dL Glucose (65-115) mg/dL Calculated Osmolal ity (285-295) mOsm/k g Calcium (8.5-10.5) mg/dL Magnesium (1.7-2.3) mg/dL Total Bilirubin (0.15-1.2) mg/dL AST (0-32) U/L ALT (0-33) U/L Alkaline Phosphata se (35-105) IU/L Troponin T Baselin e 23 H (0-10) ng/mL Troponin T 120 Min [place] 24.65 H (0-10) ng/mL Delta Troponin T 1.65 (0-10) ABS# Total Protein (6.6-8.7) g/dL Albumin (3.5-5.2) g/dL Globulin (1.3-4.6) g/dL Urine Color Yellow (Yellow) Urine Appearance Sl hazy (CLEAR) Urine pH 5 (5-7) Ur Specific Gravit y 1.010 (1.005-1.030) Urine Protein Trace (Negative) Urine Glucose (UA) Norm (Normal) Urine Ketones Negative (Negative) Urine Blood 2+ H (Negative) Urine Nitrate Negative (Negative) Urine Bilirubin Neg (NEGATIVE) Urine Urobilinogen Norm (Negative) mg/dL Ur Leukocyte Mica ase Trace H (Negative) Urine RBC 0-4 H (0-2) /hpf Urine WBC 5-10 H (0-5) /hpf Ur Squamous Epith Cells 0-4 H (0-5) Urine Bacteria 2+ H (NONE) Hyaline Casts 25-40 H Urine Mucus Trace Discharge Plan Discharge Patient Disposition: Hospice - Home Clinical Impression: Aortic stenosis Qualifiers: Cardiac valve disease etiology: etiology unspecified Qualified Code(s): I35.0 - Nonrheumatic aortic (valve) stenosis Acute exacerbation of congestive heart failure Qualifiers: Heart failure type: systolic Qualified Code(s): I50.23 - Acute on chronic systolic (congestive) heart failure Fracture of phalanx of digit of hand Qualifiers: Encounter type: initial encounter Fracture type: closed Qualified Code(s): S62.609A - Fracture of unspecified phalanx of unspecified finger, initial encounter for closed fracture Condition: Stable Prescriptions: New Lasix 20 mg tablet 20 mg PO BID Qty: 10 RF: 0 Discharge Orders: Discharge Order (Routine); Ordered 03/11/20 Ordered By: Reji Rausch Referrals: Dyllan Mann DO [Primary Care Provider] - 4-7 days Discharge Activity: Increase activity as tolerated Patient Instructions: Congestive Heart Failure, Aortic Stenosis (ED) Activity Restrictions/Additional Instructions: Return for repeated episodes of syncope or passing out, chest discomfort, shortness of breath, lethargy, more frequent falls, other concerning symptoms. Take the water pill twice daily for 5 days. 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
[2020-03-11 01:56] LABS: Add Urine Microscopic? YES; Bilirubin Urine Neg (NEGATIVE); Blood Urine 2+ (Negative); Glucose Urine UA Norm (Normal); Ketones Urine Negative (Negative); Leukocyte Esterase Urine Trace (Negative); Nitrate Urine Negative (Negative); Protein Urine Trace (Negative); Urine Appearance SL Hazy (CLEAR); Urine Color Yellow (Yellow); Urobilinogen Urine Norm (Negative); pH Urine 5 (5-7)
[2020-03-11 01:57] LABS: RBC Urine 0-4 /hpf (0-2)
[2020-03-11] MEDS: FUROsemide 10 mg/mL SDV 4mL 60 MG IVP (01:57)
--- NOTE | 2020-03-11 01:57 | PC.NURSE ---
Pt's son: Byron Horner cell: [phone]. Son updated on pt's status
[2020-03-11 01:58] LABS: Add Urine Culture? Yes; Bacteria Urine 2+; Hyaline Casts Urine 25-40; Mucus Urine TRACE; Squamous Epithelial Cell Urine 0-4 (0-5)
--- NOTE | 2020-03-11 02:08 | P.HP_ITS ---
Providers/Chief Complaint Primary Care Provider: Dyllan Mann DO Chief Complaint: fall/right hand pain History of Present Illness Nola Quick is a 74 year old female who carries diagnosis of non-small cell carcinoma of right lung which is multifocal, currently she is on home hospice, history of aortic stenosis, chronic hypoxemia, diastolic congestive heart failure, mesenteric artery stenosis, peripheral arterial disease, COPD, gastroparesis, CVA, came today with chief complaint of recurrent falls. Patient is stating that she is on home hospice, only medication she is taking at home his hydrocodone and Xanax, amount of these tablets depends on her pain level, for last few months she has been having recurrent falls, she is using walker for ambulation, she would fall backwards, the syncopal events are happening spontaneously without any warning signs. After recent fall her right hand was hurting and that prompted her to come to the ER. Diagnostics in the ER revealed fracture of right proximal phalanx, normal hemodynamics, ZAC, chest x-ray shows pulmonary edema. Patient was very drowsy when I was examining her, however she able to give me above-mentioned details, patient is stating that she was scheduled for an aortic valve surgery in [place]. She is not able to tell me the details. Hospitalist service was requested to admit the patient because of recurrent falls and heart failure exacerbation. In the ER initially she was given 500 normal saline and then IV Lasix 60 mg was administered, EKG is not showing any ischemic or infarctive changes, troponin not significantly high, CT head and neck shows chronic changes Review of Systems Const: Reports: body aches, fatigue and malaise; Denies: fever or chills Eyes: Denies: change in vision or blurry vision ENMT: Denies: throat pain or uvular edema Card: Reports: syncope, shortness of breath on exertion and leg pain with exertion; Denies: chest pain or shortness of breath when lying down Resp: Reports: shortness of breath GI: Denies: abdominal pain : Denies: flank pain Musc: Denies: neck pain Skin/Breast: Reports: rash, redness, new lesion and nail changes Neuro: Denies: headache Psych: Reports: depression and sleeping more Endo: Denies: excessive urination [place]/Lymph: Denies: easy bruising All/Imm: Denies: hives Medications/Allergies Allergies Allergy/AdvReac Type Severity Reaction Status Date / Time Penicillins Allergy ALGY-Rash Verified 11/10/19 13:19 Sulfa (Sulfonamide Allergy ALGY-Rash Verified 11/10/19 13:19 Antibiotics) PFSH Acute PFSH: Medical History Atrial fibrillation CAD (coronary artery disease) CHF (congestive heart failure) COPD (chronic obstructive pulmonary disease) CVA (cerebral vascular accident) Diabetes Gastroparesis GERD (gastroesophageal reflux disease) HTN (hypertension) Hyperlipidemia Lung cancer Non-small cell adenocarcinoma of lung, multifocal Mesenteric ischemia Celiac artery stenting Myocardial infarction Pancreatitis Peptic ulcer disease Peripheral vascular disease Pulmonary embolism Ulcerative colitis Valvular heart disease Surgical History History of bladder suspension procedure History of laparotomy Hx of adenoidectomy Hx of appendectomy Hx of carotid angioplasty Hx of cataract surgery Hx of cholecystectomy Hx of colonoscopy Hx of endoscopy Hx of hemorrhoidectomy Hx of hysterectomy Hx of tonsillectomy Family History Denies family history of Diabetes Dementia Chronic kidney disease (CKD) Social History Smoking and tobacco status: current every day smoker Alcohol intake: never Substance/Drug Use: never Household members: family Housing: House Vitals/I&O/Wt Last Vital Signs Temp 97.8 F 03/10/20 23:33 Pulse 68 03/10/20 23:33 Resp 20 H 03/10/20 23:33 BP 172/90 03/10/20 23:33 Pulse Ox 95 03/11/20 00:23 03/10/20 03/10/20 03/11/20 14:59 22:59 06:59 Intake Total 500 / 500 Balance 500 / 500 Weight last 48 hrs Weight 63.503 kg Physical Exam Narrative: EXAM NARRATIVE: Head to toe examination Patient was laying flat, saturating well on 3 L nasal cannula Asymmetrical pupil, left-sided pupil not reactive to light, smaller as compared to the right 1 GCS 15, awake alert oriented x3 No facial asymmetry S1, S2, 3/6 systolic murmur right second intercostal space radiating towards precordium Clinically she looks euvolemic Abdomen soft, nontender, nondistended bowel sound present Lungs have adventitious sounds crackles and rhonchi at the bases Skin shows multiple petechia purpura and lacerations especially at the left anterior brody Pertinent negative No facial asymmetry No overt fluid overloaded signs No peritonitis signs Data : 03/10/20 23:50 03/11/20 00:40 A&P Assessment and plan (1) Aortic stenosis: Status: Acute (2) Syncope: Status: Acute (3) Acute exacerbation of congestive heart failure: Status: Acute Additional A&P Information Multiple syncopal events Most likely etiology is aortic stenosis Would request records from [facility] I highly doubt she will be a candidate for aortic valve replacement considering her home hospice and lung cancer Careful diuresis in the hospital, supplemental oxygen to make her comfortable Diastolic congestive heart failure exacerbation due to aortic stenosis worsening Careful diuresis X-ray consistent with pulmonary edema Patient is DNR/DNI While she was in the ER she decided to leave AGAINST MEDICAL ADVICE, risks and complications were discussed and patient verbalized her insight and stated that she has oxygen at home that she could use and would like to stay home Attestations Medical Necessity Statement*: While I was putting in admission orders, patient decided to leave AGAINST MEDICAL ADVICE, we talked about her multiple syncopal events which are most likely due to severe aortic stenosis and considering her home hospice and lung cancer underlying medical conditions she might not get approved for any aortic valve surgeries, we discussed the possibility of careful diuresis and getting records from [facility]. Patient would like to leave AMA. Time Spent in Patient Care: 40 Coding Level of Care Code Acute [place] Counselor for [facility] Jose Carlos Diagnoses Aortic stenosis I35.0 Syncope R55 Acute exacerbation of congestive heart failure I50.9
--- NOTE | 2020-03-11 03:04 | PC.NURSE ---
Pt states during pt rounding that she wishes to go home . Dr Rausch notified. Pt willing to sign AMA paperwork understanding risks and benefits of leaving AMA vs hospital admission
[2020-03-11 03:22] LABS: Troponin 5 2HR 24.65 ng/mL (0-10); Troponin 5 2HR Delta 1.65 ABS# (0-10)
[2020-03-11 04:05] VITALS: BP 132/72; PULSE 82; RESP 18; O2SAT 92
--- NOTE | 2020-03-11 04:12 | PC.NURSE ---
i agree with this assessment
== END 2020-03-11 04:13 | disposition hospice, home (50) ==
PROVIDERS: Emergency Provider Emergency Medicine; Family Provider Internal Medicine; PCP Internal Medicine
DX: S62.616A Displaced fracture of proximal phalanx of right little finger, initial encounter for closed fracture (principal); I11.0 Hypertensive heart disease with heart failure; I50.23 Acute on chronic systolic (congestive) heart failure; I35.0 Nonrheumatic aortic (valve) stenosis; I48.91 Unspecified atrial fibrillation; I25.10 Atherosclerotic heart disease of native coronary artery without angina pectoris; J44.9 Chronic obstructive pulmonary disease, unspecified; Z09 Encounter for follow-up examination after completed treatment for conditions other than malignant neoplasm; Z86.73 Personal history of transient ischemic attack (TIA), and cerebral infarction without residual deficits; E11.9 Type 2 diabetes mellitus without complications; E78.5 Hyperlipidemia, unspecified; Z85.118 Personal history of other malignant neoplasm of bronchus and lung; I25.2 Old myocardial infarction; I73.9 Peripheral vascular disease, unspecified; F17.210 Nicotine dependence, cigarettes, uncomplicated; W19.XXXA Unspecified fall, initial encounter; R41.0 Disorientation, unspecified
CPT/HCPCS: 12345; 29125; 36415; 70450; 71045; 72125; 73130; 80053; 81001; 83735; 84484; 85025; 85610; 87077; 87086; 87186; 93005; 96360; 96361; 96374; 96375; 99284; A4590; J1940; J7040